=== PATIENT | male | born 1995 | race Caucasian/White ===

== ENCOUNTER 2019-12-31 08:39 | Emergency (ER) | payer MEDICAID ==
[~2019-12-31] VITALS: Ht 170.2 cm; Wt 99.8 kg
--- NOTE | 2019-12-31 08:46 | NUR ---
PATIENT AMBULATED WITH STEADY GAIT TO BED 2.
[2019-12-31 08:51] VITALS: BP 127/59
--- NOTE | 2019-12-31 09:01 | NUR ---
PT STATES TIGHTNESS SENSATION IN MID CHEST LAST NIGHT WITH NAUSEA, PAIN HAS BEEN CONTINUOUS BUT NO NAUSEA AT THIS TIME, RATED 5/10 AT THIS TIME. NO STATES PAIN WAS "RISING UP" BUT NO RADIATION TO NECK/ARMS. PAIN NOT PLEURITIC. DENIES SOB. ALSO STATES "I HAVE THE FLU BUT I'M HERE FOR THE PAIN IN MY CHEST". STATES SORE THROAT, RUNNY NOSE, NASAL CONGESTION X 2 DAYS. APPEARS IN NAD. LOOKING AT CELLPHONE. HX- DENIES NKA Addendum: 12/31/19 at 0925 by AGNES PT STATES TIGHTNESS SENSATION IN MID CHEST LAST NIGHT WITH NAUSEA, PAIN HAS BEEN CONTINUOUS BUT NO NAUSEA AT THIS TIME, RATED 5/10 AT THIS TIME. PT STATES PAIN WAS "RISING UP" BUT NO RADIATION TO NECK/ARMS. PAIN NOT PLEURITIC. DENIES SOB. ALSO STATES "I HAVE THE FLU BUT I'M HERE FOR THE PAIN IN MY CHEST". STATES SORE THROAT, RUNNY NOSE, NASAL CONGESTION X 2 DAYS. APPEARS IN NAD. LOOKING AT CELLPHONE. HX- DENIES NKA
--- NOTE | 2019-12-31 09:27 | NUR ---
DR TAN EVALUATING PT AT BEDSIDE
--- NOTE | 2019-12-31 09:51 | NUR ---
INFLUENZA SWAB COLLECTED AND HANDED TO TELLER.
--- NOTE | 2019-12-31 11:12 | NUR ---
Patient discharged with v/s stable. Written and verbal after care instructions given and explained. Patient alert, oriented and verbalized understanding of instructions. Ambulatory with steady gait. All questions addressed prior to discharge. ID band removed. Patient advised to follow up with PMD. Rx of MOTRIN AND PROMETHAZINE DM given. Patient educated on indication of medication including possible reaction and side effects. Opportunity to ask questions provided and answered.
[2019-12-31 11:15] VITALS: BP 123/52
== END 2019-12-31 11:12 | disposition home or self-care (01) ==
LOC: MED 08:39
DX: J06.9 Acute upper respiratory infection, unspecified (principal)
CPT/HCPCS: 87804; 99283